=== PATIENT | female | born 1960 | race Caucasian/White ===

== ENCOUNTER 2017-01-08 12:50 | Emergency (ER) | payer MEDICARE, OTHER ==
[2017-01-08 13:37] LABS: HEMOGLOBIN 13.9 gm/dl (12.3-15.3); RED BLOOD COUNT 4.6 M/UL (4.00-5.10); WHITE BLOOD COUNT 12.8 K/UL (4.5-11.0)
== END 2017-01-08 16:56 | disposition home or self-care (01) ==
LOC: ER1 12:50
PROVIDERS: Family Medicine
DX: R10.13 Epigastric pain (principal); R07.89 Other chest pain; J44.9 Chronic obstructive pulmonary disease, unspecified; F17.210 Nicotine dependence, cigarettes, uncomplicated; I21.3 ST elevation (STEMI) myocardial infarction of unspecified site; I11.9 Hypertensive heart disease without heart failure; E11.9 Type 2 diabetes mellitus without complications; Z88.6 Allergy status to analgesic agent; Z90.710 Acquired absence of both cervix and uterus; Z86.73 Personal history of transient ischemic attack (TIA), and cerebral infarction without residual deficits; Z95.1 Presence of aortocoronary bypass graft; Z79.899 Other long term (current) drug therapy
CPT/HCPCS: 36415; 71010; 80053; 82272; 82550; 82553; 83690; 83874; 84484; 85025; 93005; 96374; 96375; 99285; C9113; J2405